=== PATIENT | male | born 1955 | race Caucasian/White ===

== ENCOUNTER 2018-04-17 12:18 | Day surgery (SDC) | payer OTHER ==
[~2018-04-17] VITALS: Ht 182.9 cm; Wt 82.2 kg
== END 2018-04-17 16:24 | disposition home or self-care (01) ==
LOC: ORSCSDS 12:18
PROVIDERS: Surgery
PROC: 0DJD8ZZ Inspection of Lower Intestinal Tract, Via Natural or Artificial Opening Endoscopic (ICD-10-PCS; principal; 2018-04-17 13:45)
DX: Z12.11 Encounter for screening for malignant neoplasm of colon (principal); K57.30 Diverticulosis of large intestine without perforation or abscess without bleeding; E78.5 Hyperlipidemia, unspecified
CPT/HCPCS: J7120

== ENCOUNTER 2023-08-25 10:06 | Day surgery (SDC) | payer OTHER ==
[~2023-08-25] VITALS: Ht 182.9 cm; Wt 78.2 kg
[~2023-08-25 10:06] MED LIST: Lactated Ringer's 1,000 ML IV ONE; propofoL 50 ML IV ONE
[2023-08-25] MEDS ORDERED: Lactated Ringer's 1,000 ML IV ONE (10:35)
[2023-08-25 11:36] VITALS: BP 113/73
== END 2023-08-25 11:30 | disposition home or self-care (01) ==
LOC: ORSCSDS 10:06
PROVIDERS: Specialist
PROC: 0DB68ZX Excision of Stomach, Via Natural or Artificial Opening Endoscopic, Diagnostic (ICD-10-PCS; principal; 2023-08-25 11:30)
PROC: 0DB58ZX Excision of Esophagus, Via Natural or Artificial Opening Endoscopic, Diagnostic (ICD-10-PCS; principal; 2023-08-25 11:30)
PROC: 0DB98ZX Excision of Duodenum, Via Natural or Artificial Opening Endoscopic, Diagnostic (ICD-10-PCS; principal; 2023-08-25 11:30)
DX: K21.9 Gastro-esophageal reflux disease without esophagitis (principal); K22.10 Ulcer of esophagus without bleeding; K29.80 Duodenitis without bleeding; Q82.8 Other specified congenital malformations of skin; K44.9 Diaphragmatic hernia without obstruction or gangrene
CPT/HCPCS: 88305; J2704; J7120